=== PATIENT | male | born 1970 | race Caucasian/White ===

== ENCOUNTER 2022-11-23 11:09 | Day surgery (SDC) | payer OTHER ==
[2022-11-22 11:22] VITALS: BMI 26.6
[~2022-11-23 11:09] MED LIST: LACTATED RINGERS 1,000 ML IV SCH
[2022-11-23 11:28] VITALS: RESP 20; TEMP 96.9
[2022-11-23] MEDS ORDERED: PROPOFOL 10 MG/ML 20 ML VIAL IV ONE (11:48)
--- NOTE | 2022-11-23 12:04 | P.PCN ---
Date of Procedure: 11/23/22 Procedure(s) Performed: tBRIEF HISTORY: Patient is a 52-year-old pleasant white male scheduled for an elective colonoscopy as a part of screening for colon cancer. He has been complaining of intermittent lower abdominal pain and rectal bleeding. PROCEDURE PERFORMED: Colonoscopy with biopsy. PREOPERATIVE DIAGNOSIS: Screening for colon cancer. IV sedation per Anesthesia. PROCEDURE: After informed consent was obtained, the patient, was brought into the endoscopy unit. IV sedation was administered by Anesthesia under continuous monitoring. Digital rectal examination was normal. Initially the Olympus CF-160 flexible video colonoscope was then inserted in the rectum, gradually advanced into the cecum without any difficulty. Careful examination was performed as the scope was gradually being withdrawn. Ileocecal valve and the appendiceal orifice were visualized and appeared normal. Prep was excellent. Mucosa of the cecum, ascending colon, transverse colon, descending colon, appeared normal. In the sigmoid colon there was patchy areas of erythema and friability extending from 30-35 cm from the anal verge in the vicinity of diverticulosis suspicious for diverticular related colitis and biopsies were done from this area. Rest of the sigmoid colon, and rectum appeared normal. Retroflexion was performed in the rectum and no lesions were seen. The patient tolerated the procedure well. IMPRESSION: Mild segmental colitis involving the sigmoid colon extending from 30-35 cm from the anal verge with mucosal friability and patchy erythema but no ulcerations or erosions suspicious for diverticular related colitis, status post multiple biopsies Scattered sigmoid diverticulosis No evidence of colorectal neoplasia RECOMMENDATIONS: Findings of this examination were discussed with the patient well as his family. He was advised to follow with the biopsy results and he'll be seen in office in 3-4 weeks.
[2022-11-23 12:26] VITALS: BP 110/66; PULSE 66
== END 2022-11-23 12:47 | disposition home or self-care (01) ==
LOC: ORWHC2ENDO 11:09
PROVIDERS: ATTEND Internal Medicine Gastroenterology
DX: Z12.11 Encounter for screening for malignant neoplasm of colon (principal); K50.10 Crohn's disease of large intestine without complications; K57.30 Diverticulosis of large intestine without perforation or abscess without bleeding; Z88.0 Allergy status to penicillin
CPT/HCPCS: 88305; 45380; J2704

== ENCOUNTER → 2023-06-06 | Outpatient (CLI) | payer OTHER ==
--- NOTE | 2023-06-06 12:13 | US ---
EXAMINATION TYPE: US kidneys/renal and bladder DATE OF EXAM: 06/06/2023 COMPARISON: NONE CLINICAL INDICATION: Male, 52 years old with history of R31.9 HEMATURIA; Hematuria, back pain EXAM MEASUREMENTS: Right Kidney: 9.6x4.6x5.4 cm Left Kidney: 9.0x5.5x6.0 cm Right Kidney: peripelvic cyst vs. other at superior pole 1.8x1.4x1.6cm Left Kidney: wnl Bladder: wnl Bilateral Jets seen: Yes There is no evidence for hydronephrosis at this point in time. No nephrolithiasis is seen. The urina ry bladder is anechoic. Bilateral ureteral jets are seen. IMPRESSION: 1. No evidence of obstructive uropathy. 2. Left peripelvic lesion could represent complex's. Consider CT/MRI renal mass protocol for complet e evaluation.
== END | disposition home or self-care (01) ==
LOC: RADUSWWP 10:53
PROVIDERS: ATTEND Family Medicine
DX: N28.89 Other specified disorders of kidney and ureter (principal); R31.9 Hematuria, unspecified
CPT/HCPCS: 76770

== ENCOUNTER → 2023-07-05 | Outpatient (CLI) | payer OTHER | END | disposition home or self-care (01) | LOC: RADMRIMAIN 16:02 | PROVIDERS: ATTEND Family Medicine | DX: Z53.9 Procedure and treatment not carried out, unspecified reason (principal) ==

== ENCOUNTER → 2024-02-18 | Outpatient (CLI) | payer OTHER ==
--- NOTE | 2024-02-18 14:26 | CT ---
EXAMINATION TYPE: CT abdomen pelvis w con CT DLP: 1564 mGycm, Automated exposure control for dose reduction was used. DATE OF EXAM: 02/18/2024 2:13 PM COMPARISON: None CLINICAL INDICATION:Male, 53 years old with history of N28.89 OTHER SPECIFIED DISORDERS OF KIDNEY AND URE; TECHNIQUE: Axial CT abdomen pelvis w con;Sagittal and coronal reformats were created on a separate w orkstation. Contrast used: mL of , (none if empty) Oral contrast used: (none if empty) FINDINGS: LOWER CHEST: Air cyst in the right lung base. ABDOMEN LIVER: Unremarkable GALLBLADDER AND BILE DUCTS: Unremarkable. PANCREAS: Unremarkable. SPLEEN: Unremarkable. ADRENAL GLANDS: Unremarkable. KIDNEYS AND URETERS: No evidence of hydronephrosis or renal calculus. The ureters are unremarkable. PELVIS BLADDER: Unremarkable REPRODUCTIVE: Unremarkable. ABDOMEN & PELVIS STOMACH AND BOWEL: No evidence of bowel obstruction. Oral contrast extends to the rectum. Scattered c olonic diverticula. PERITONEUM/RETROPERITONEUM: No evidence of pneumoperitoneum or free fluid. VASCULATURE: No evidence of aortic aneurysm. MUSCULOSKELETAL: No acute osseous abnormalities LYMPH NODES: No gross evidence for lymphadenopathy. SOFT TISSUE/ABDOMINAL WALL: Unremarkable IMPRESSION: 1. No evidence for acute abdominal process. No obstructive uropathy or renal calculus. 2. Colonic diverticulosis.
== END | disposition home or self-care (01) ==
LOC: RADCTMAIN 11:06
PROVIDERS: ATTEND Family Medicine
DX: N28.89 Other specified disorders of kidney and ureter (principal); K57.30 Diverticulosis of large intestine without perforation or abscess without bleeding
CPT/HCPCS: 74177; Q9967